=== PATIENT | female | born 1985 | race American Indian/Alaskan Native ===

== ENCOUNTER 2016-12-26 10:37 | Emergency (ER) | payer MEDICAID ==
--- NOTE | 2016-12-26 11:23 | Emergency Department Report ---
Chief Complaint: Nausea/Vomiting/Diarrhea Stated Complaint: N/V X 3 DAYS, 10 WEEKS PREG Time Seen by Provider: 12/26/16 11:21 - HPI History of Present Illness: PT states she is 10 weeks and she has been vomiting for 3 days. She states she can not hold anything down. - ROS Review of Systems: + abd pain + n/v - diarrhea - Exam Vital Signs: Vital Signs 12/26/16 11:19 Temperature 98.2 F Pulse Rate 84 Respiratory 18 Rate Blood Pressure 148/80 O2 Sat by Pulse 98 Oximetry Physical Exam: obese female, no acute distress abd soft and not tender, however, pt reports pelvic pain MSE screening note: Focused history and physical exam performed. Due to findings the following was ordered: labs, us ED Disposition for MSE Condition: Stable
[2016-12-26 12:23] LABS: Bacteria,Urine 1+ /HPF (Negative); Bilirubin,Urine NEG (Negative); Blood,Urine NEG (Negative); Ketones,Urine TR mg/dL (Negative); Leukocyte Esterase,Urine NEG (Negative); Mucus,Urine 2+ /HPF; Nitrite,Urine NEG (Negative); Protein,Urine <15 mg/dL mg/dL (Negative); Urobilinogen,Urine < 2.0 mg/dL (<2.0)
[2016-12-26 12:31] LABS: Basophils % (Auto) 0.6 % (0.0-1.8); Eosinophils % (Auto) 1.6 % (0.0-4.3); Hematocrit 37.1 % (30.3-42.9); Hemoglobin 11.9 gm/dl (10.1-14.3); Mean Corpuscular HGB Conc 32 % (30-34); Mean Corpuscular Hemoglobin 28 pg (28-32); Mean Corpuscular Volume 87 fl (79-97); Platelet Count 264 K/mm3 (140-440); Red Blood Count 4.28 M/mm3 (3.65-5.03); Red Cell Distribution Width 16.2 % (13.2-15.2); White Blood Count 7.7 K/mm3 (4.5-11.0)
[2016-12-26 12:45] LABS: Alanine Aminotransferase 20 units/L (7-56); Albumin 3.5 g/dL (3.9-5); Albumin/Globulin Ratio 0.8 %; Alkaline Phosphatase 58 units/L (35-129); Anion Gap 19 mmol/L; BUN/Creatinine Ratio 13.33; Blood Urea Nitrogen 8 mg/dL (7-17); Calcium 8.9 mg/dL (8.4-10.2); Carbon Dioxide 20 mmol/L (22-30); Chloride 100.4 mmol/L (98-107); Glucose 83 mg/dL (65-100); Potassium 4.1 mmol/L (3.6-5.0); Sodium 135 mmol/L (137-145); Total Protein 7.7 g/dL (6.3-8.2)
--- NOTE | 2016-12-26 14:18 | Ultrasound Report ---
ULTRASOUND OB LESS THAN 14 WEEKS FETUS ULTRASOUND OB TRANSVAGINAL HISTORY: Pelvic pain during . TECHNIQUE: Transabdominal and transvaginal ultrasound with color and spectral doppler interrogation. The uterus measures 13 x 8 x 9 cm. No uterine mass is appreciated. An intrauterine is identified with heart rate measuring 158 beats per minute. Estimated age on ultrasound is weeks, 5 days. Estimated due date of 07/26/17. No subchorionic hemorrhage is appreciated. The right ovary measures 4.1 x 2.7 x 2.9 cm. The left ovary measures 3.2 x 2.1 x 2.4 cm. No adnexal abnormality is appreciated. IMPRESSION: Viable, single intrauterine as described.
[2016-12-26] MEDS ORDERED: ZOFRAN ODT PO ONE (17:12)
--- NOTE | 2016-12-26 19:15 | Emergency Department Report ---
ED General Adult HPI - General Chief complaint: Nausea/Vomiting/Diarrhea Stated complaint: N/V X 3 DAYS, 10 WEEKS PREG Time Seen by Provider: 12/26/16 11:21 Source: patient Mode of arrival: Ambulatory Limitations: No Limitations - History of Present Illness Severity scale (0 -10): 5 - Related Data Previous Rx's Medication Instructions Recorded Last Taken Type Ondansetron [Zofran Odt] 4 mg PO Q8HR PRN #15 tab.rapdis 12/26/16 Unknown Rx Allergies Allergy/AdvReac Type Severity Reaction Status Date / Time No Known Allergies Allergy Verified 12/26/16 16:27 ED Review of Systems ROS: Stated complaint: N/V X 3 DAYS, 10 WEEKS PREG Other details as noted in HPI ED Past Medical Hx - Past Medical History Previous Medical History?: No - Surgical History Past Surgical History?: No - Social History Smoking Status: Never Smoker Substance Use Type: None - Medications Home Medications: Home Medications Medication Instructions Recorded Confirmed Last Taken Type Ondansetron [Zofran Odt] 4 mg PO Q8HR PRN #15 tab.rapdis 12/26/16 Unknown Rx ED Physical Exam - General Limitations: No Limitations ED Course Vital Signs 12/26/16 12/26/16 12/26/16 11:19 15:21 15:24 Temperature 98.2 F 98.1 F Pulse Rate 84 76 Respiratory 18 18 16 Rate Blood Pressure 148/80 Blood Pressure 144/88 [Right] O2 Sat by Pulse 98 100 100 Oximetry 12/26/16 19:26 Temperature Pulse Rate 84 Respiratory 16 Rate Blood Pressure Blood Pressure 103/70 [Right] O2 Sat by Pulse 100 Oximetry ED Medical Decision Making - Lab Data Result diagrams: 12/26/16 12:08 12/26/16 12:08 Critical care attestation.: If time is entered above; I have spent that time in minutes in the direct care of this critically ill patient, excluding procedure time. ED Disposition Disposition: DC-01 TO HOME OR SELFCARE Is pt being admited?: No Does the pt Need Aspirin: No Condition: Stable Instructions: Morning Sickness (ED), (ED), Acute Nausea and Vomiting (ED) Prescriptions: Ondansetron [Zofran Odt] 4 mg PO Q8HR PRN #15 tab.rapdis PRN Reason: Nausea Referrals: MAKENNA MANCIA MD [Staff Physician] - 3-5 Days Forms: Work/School Release Form(ED)
[2016-12-26 19:26] VITALS: BP 103/70
== END 2016-12-26 19:27 | disposition home or self-care (01) ==
LOC: ED 10:37
DX: O21.9 Vomiting of pregnancy, unspecified (principal); O26.891 Other specified pregnancy related conditions, first trimester; R19.7 Diarrhea, unspecified; Z3A.10 10 weeks gestation of pregnancy
CPT/HCPCS: 36415; 76801; 76817; 80053; 81001; 84702; 85025; 86900; 86901; 99284; Q0162

== ENCOUNTER 2017-02-12 10:17 | Emergency (ER) | payer SELFPAY ==
[2017-02-12 10:25] VITALS: BP 125/84
[2017-02-12 12:44] LABS: Basophils % (Auto) 0.5 % (0.0-1.8); Eosinophils % (Auto) 2.5 % (0.0-4.3); Hemoglobin 11.2 gm/dl (10.1-14.3); Mean Corpuscular HGB Conc 32 % (30-34); Mean Corpuscular Hemoglobin 29 pg (28-32); Mean Corpuscular Volume 89 fl (79-97); Platelet Count 209 K/mm3 (140-440); Red Blood Count 3.92 M/mm3 (3.65-5.03); Red Cell Distribution Width 16.1 % (13.2-15.2); White Blood Count 7.2 K/mm3 (4.5-11.0)
[2017-02-12 13:02] LABS: Alanine Aminotransferase 34 units/L (7-56); Albumin 3.2 g/dL (3.9-5); Albumin/Globulin Ratio 0.9 %; Alkaline Phosphatase 45 units/L (35-129); Amylase 60 units/L (27-131); BUN/Creatinine Ratio 8; Blood Urea Nitrogen 5 mg/dL (7-17); Calcium 8.6 mg/dL (8.4-10.2); Carbon Dioxide 22 mmol/L (22-30); Glucose 83 mg/dL (65-100); Lipase 14 units/L (13-60); Total Protein 6.9 g/dL (6.3-8.2)
[2017-02-12 13:03] LABS: Anion Gap 17 mmol/L; Chloride 100.6 mmol/L (98-107); Potassium 3.9 mmol/L (3.6-5.0); Sodium 136 mmol/L (137-145)
--- NOTE | 2017-02-12 13:12 | Emergency Department Report ---
ED Abdominal Pain HPI - General Chief Complaint: Abdominal Pain Stated Complaint: R SIDED STOMACH PAIN 17WKS PREG Time Seen by Provider: 02/12/17 11:08 Source: patient Mode of arrival: Ambulatory Limitations: No Limitations - History of Present Illness Initial Comments: This is a 31-year-old female nontoxic, well nourished in appearance, no acute signs of distress presents to the ED with c/o of right sided lower abdominal pain x1 day. 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 Patient stated she is she currently 17 weeks and follows an [employer] T[employer]ER with normal . Patient denies any trauma to the region. Patient stated symptoms are resolving when laying supine and aggravated during movement. Patient denies any vaginal bleeding, dysuria, polyuria, hematochezia, fever, chills, nausea, vomiting, chest pain, shortness of breath, back pain, flank pain. Patient denies any allergies past medical history. MD Complaint: abdominal pain (RLQ) -: Last night Location: RLQ Radiation: none Migration to: no migration Severity: mild Severity scale (0 -10): 8 Quality: sharp Consistency: intermittent Improves With: rest Worsens With: movement Associated Symptoms: denies other symptoms. denies: nausea, vomiting, diarrhea , fever, chills, constipation, dysuria, hematemesis, hematochezia, melena, hematuria, anorexia, syncope - Related Data LMP Date: 10/17/16 Previous Rx's Medication Instructions Recorded Last Taken Type Ondansetron [Zofran Odt] 4 mg PO Q8HR PRN #15 tab.rapdis 12/26/16 Unknown Rx Acetaminophen [Acetaminophen TAB] 650 mg PO Q8HR PRN #30 tablet 02/12/17 Unknown Rx Allergies Allergy/AdvReac Type Severity Reaction Status Date / Time No Known Allergies Allergy Verified 12/26/16 16:27 ED Review of Systems ROS: Stated complaint: R SIDED STOMACH PAIN 17WKS PREG Other details as noted in HPI Constitutional: denies: chills, fever Eyes: denies: eye pain, eye discharge, vision change ENT: denies: ear pain, throat pain Respiratory: denies: cough, shortness of breath, wheezing Cardiovascular: denies: chest pain, palpitations Endocrine: no symptoms reported Gastrointestinal: abdominal pain. denies: nausea, diarrhea Genitourinary: denies: urgency, dysuria, discharge Musculoskeletal: denies: back pain, joint swelling, arthralgia Skin: denies: rash, lesions Neurological: denies: headache, weakness, paresthesias Psychiatric: denies: anxiety, depression Hematological/Lymphatic: denies: easy bleeding, easy bruising ED Past Medical Hx - Past Medical History Previous Medical History?: No - Surgical History Past Surgical History?: No - Social History Smoking Status: Never Smoker Substance Use Type: None - Medications Home Medications: Home Medications Medication Instructions Recorded Confirmed Last Taken Type Ondansetron [Zofran Odt] 4 mg PO Q8HR PRN #15 tab.rapdis 12/26/16 Unknown Rx Acetaminophen [Acetaminophen TAB] 650 mg PO Q8HR PRN #30 tablet 02/12/17 Unknown Rx ED Physical Exam - General Limitations: No Limitations General appearance: alert, in no apparent distress - Head Head exam: Present: atraumatic, normocephalic, normal inspection - Eye Eye exam: Present: normal appearance, PERRL, EOMI. Absent: scleral icterus, conjunctival injection, nystagmus, periorbital swelling, periorbital tenderness Pupils: Present: normal accommodation - ENT ENT exam: Present: normal exam, normal orophraynx, mucous membranes moist, TM's normal bilaterally, normal external ear exam - Neck Neck exam: Present: normal inspection, full ROM. Absent: tenderness, meningismus, lymphadenopathy, thyromegaly - Respiratory Respiratory exam: Present: normal lung sounds bilaterally. Absent: respiratory distress, wheezes, rales, rhonchi, stridor, chest wall tenderness, accessory muscle use, decreased breath sounds, prolonged expiratory - Cardiovascular Cardiovascular Exam: Present: regular rate, normal rhythm, normal heart sounds. Absent: irregular rhythm, systolic murmur, diastolic murmur, rubs, gallop - GI/Abdominal GI/Abdominal exam: Present: soft, tenderness (slight to RLQ), normal bowel sounds. Absent: distended, guarding, rebound, rigid, diminished bowel sounds - Expanded GI/Abdominal Exam Expanded GI/Abdominal exam: Absent: psoas sign, obturator sign, heel tap sign, Hayes's sign, Rovsing's sign, tenderness at Mcburney's Point - Rectal Rectal exam: Present: deferred - Extremities Exam Extremities exam: Present: normal inspection, full ROM, normal capillary refill. Absent: tenderness, pedal edema, joint swelling, calf tenderness - Back Exam Back exam: Present: normal inspection, full ROM. Absent: tenderness, CVA tenderness (R), CVA tenderness (L), muscle spasm, paraspinal tenderness, vertebral tenderness, rash noted - Neurological Exam Neurological exam: Present: alert, oriented X3, CN II-XII intact, normal gait, reflexes normal - Psychiatric Psychiatric exam: Present: normal affect, normal mood - Skin Skin exam: Present: warm, dry, intact, normal color. Absent: rash ED Course Vital Signs 02/12/17 10:22 Temperature 98.1 F Pulse Rate 104 H Respiratory 16 Rate Blood Pressure 125/84 O2 Sat by Pulse 98 Oximetry - Reevaluation(s) Reevaluation #1: 02/12/17 13:15 Patient is speaking in full sentences with no signs of distress noted. ED Medical Decision Making - Lab Data Result diagrams: 02/12/17 12:24 02/12/17 12:24 - Medical Decision Making This is a 31-year-old female that presents with muscle strain. Patient was examined by me patient is stable. Ultrasound of complete abdomen, transvaginal and fetus has been obtained with normal exam and the radiologist. There is several bladder polyps which patient was notified to follow up with a primary care doctor. Patient received Tylenol in the ED which patient stated symptoms aren't improving and subsiding. CBC, CMP, lipase, amylase, UA, presents as obtained. Patient received 1 L of normal saline ED due to labs of slight dehydration. I will treat patient with Tylenol for pain and I instructed the patient to return to emergency room in 24 hours if symptoms worsen and continue. Patient was also instructed to Follow-up with a primary care doctor in 24 hours or if symptoms worsen and continue return to emergency room as soon as possible. At time time of discharge, the patient does not seem toxic or ill in appearance. No acute signs of distress noted. Patient agrees to discharge treatment plan of care. No further questions noted by the patient. Critical care attestation.: If time is entered above; I have spent that time in minutes in the direct care of this critically ill patient, excluding procedure time. ED Disposition Clinical Impression: Muscle strain Qualifiers: Weeks of gestation: 17 weeks Qualified Code(s): Z3A.17 - 17 weeks gestation of Disposition: DC-01 TO HOME OR SELFCARE Is pt being admited?: No Does the pt Need Aspirin: No Condition: Stable Instructions: Muscle Strain (ED), Acetaminophen (By mouth), (ED) Additional Instructions: Follow-up with a primary care doctor in 24 hours or if symptoms worsen and continue return to emergency room as soon as possible. Prescriptions: Acetaminophen [Acetaminophen TAB] 650 mg PO Q8HR PRN #30 tablet PRN Reason: Pain Referrals: [facility] [Outside] - 3-5 Days [facility] [Outside] - 3-5 Days PRIMARY CARE, [Primary Care Provider] - 24 Hours EVANGELINA KIM MD [Staff Physician] - 24 Hours GERARD DELUNA MD [Staff Physician] - 24 Hours Forms: Work/School Release Form(ED)
[2017-02-12 13:58] LABS: Bilirubin,Urine NEG (Negative); Blood,Urine NEG (Negative); Ketones,Urine 80 mg/dL (Negative); Leukocyte Esterase,Urine NEG (Negative); Mucus,Urine 1+ /HPF; Nitrite,Urine NEG (Negative); Protein,Urine <15 mg/dL mg/dL (Negative)
[2017-02-12] MEDS ORDERED: TYLENOL PO ONE (14:21)
--- NOTE | 2017-02-12 14:46 | Ultrasound Report ---
Abdominal ultrasound. History: Abdominal pain. Findings: The liver, spleen, pancreas, and kidneys are normal. The common bile duct is normal in caliber. There are couple small echogenic foci within the gallbladder lumen which do not exhibit gravity dependence or acoustic shadowing. The Wall of gallbladder is not thickened. Impression: Possible small gallbladder polyps, otherwise unremarkable study.
--- NOTE | 2017-02-12 14:53 | Ultrasound Report ---
Gestation: single Position: cephalic Amniotic Fluid: WNL BJORN = cm Placenta: posterior and fundal Placental Grade: 0 Heart Rate: 145 BPM NEUROANATOMY VISUALIZED: Choroid Plexus Lateral Ventricle ANATOMY VISUALIZED: Stomach Bladder Heart 3 Vessel Cord Abd. Cord Insert The following are not demonstrated due to maternal body habitus or lie: kidneys,diaphragm, 4 chamber heart,cisterna magna, cerebellum, and spine. BPD: 3.5 cm = 16 w 6 d HC: 13.4 cm = 16 w 6 d AC: 11.0 cm = 16 w 6 d FL: 2.3 cm = 17 w 0 d HC/AC Ratio: 1.2 Cephalic Index: 77.8 Estimated Weight: 174 grams LMP: 10/17/16 Clinical age = 16 w 6 d EDC: 07/24/17 US Gest. Age = 16 w 6 d EDC: 07/24/17
[2017-02-12] MEDS ORDERED: NACL 0.9% 1000 ML 1,000 ML IV ONE (15:03)
== END 2017-02-12 16:39 | disposition home or self-care (01) ==
LOC: ED 10:17
DX: O9A.212 Injury, poisoning and certain other consequences of external causes complicating pregnancy, second trimester (principal); S39.011A Strain of muscle, fascia and tendon of abdomen, initial encounter; Z3A.17 17 weeks gestation of pregnancy; X58.XXXA Exposure to other specified factors, initial encounter; Y93.89 Activity, other specified; Y92.89 Other specified places as the place of occurrence of the external cause; Y99.8 Other external cause status
CPT/HCPCS: 36415; 76700; 76805; 80053; 81001; 82150; 83690; 84702; 85025; 86850; 86900; 86901; 96360; 99284; J7030

== ENCOUNTER 2017-07-19 08:19 | Inpatient (IN) | payer MEDICAID ==
[2017-07-19] MEDS ORDERED: CERVIDIL VG ONE (09:48)
--- NOTE | 2017-07-19 09:58 | History and Physical Report ---
History of Present Illness Date of examination: 07/19/17 Date of admission: 07/19/17 08:19 Chief complaint: Induction of Labor History of present illness: 32yo G 5 P 3 0 1 3 at 39 weeks 2 days by LMP here for scheduled induction of labor secondary to morbid obesity. She reports positive FMs and occ UCs. She denies VB or LOF. She is a [employer]SING patient and her care was co-managed with [facility]. 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 She has a h/o asthma and denies any recent asthma attack. Her GBS was negative. Past History Past Medical History: asthma Past Surgical History: no surgical history [employer]ULT [employer]OL TE[employer]ER History: herpes Family/Genetic History: none Social history: single, lives with family - Obstetrical History Expected Date of Delivery: 07/24/17 Actual Gestation: 39 Week(s) 2 Day(s) : 5 Para: 3 Hx # Term Pregnancies: 3 Number of Pregnancies: 0 Spontaneous Abortions: 1 Induced : 0 Number of Living Children: 3 #1 Infant Gender: Female year: 1,999 (12/13/2000) Birthweight: 3.572 kg (7 lbs 14 oz) Method of Delivery: Vaginal Gestational age at delivery: 40 Complications: none #2 Gender: Female year: 2,001 (07/03/2002) Birthweight: 3.572 kg (7 lbs 14 oz) Method of Delivery: Vaginal Gestational age at delivery: 40 Complications: none #3 Infant Gender: Female year: 2,011 (11/04/2012) Birthweight: 3.657 kg (8 lbs 1 oz) Method of Delivery: Vaginal Gestational age at delivery: 40 Complications: none Medications and Allergies Allergies Allergy/AdvReac Type Severity Reaction Status Date / Time No Known Allergies Allergy Verified 07/19/17 09:39 Home Medications Medication Instructions Recorded Confirmed Last Taken Type Ferrous Sulfate [Feosol] 325 mg PO QDAY 07/19/17 07/19/17 07/18/17 21:00 History 1 Multivit-Min/Folic Acid/Alt922 1 each PO DAILY 07/19/17 07/19/17 07/18/17 21:00 History [Alive Women's Gummy Vitamins] 1 Valacyclovir HCl [Valtrex] 1,000 mg PO DAILY 07/19/17 07/19/17 07/18/17 21:00 History 1 Review of Systems All systems: negative - Physical Exam Cardiovascular: Regular rate, Normal S1, Normal S2, No murmurs Lungs: Positive: Clear to auscultation, Normal air movement Abdomen: Positive: normal appearance, soft Genitourinary (Female): Positive: normal external genitalia, normal perenium. Negative: perineal/vulvar lesions Vulva: both: normal Vagina: Positive: normal moisture Uterus: Positive: enlarged, normal contour Anus/Rectum: Positive: normal perianal skin Extremities: Positive: edema (1+) Deep Tendon Reflex Grade: Dull/Diminished +1 - Obstetrical FHR: auscultation normal, category 1 FHR comments: baseline 145, moderate variability, + accels, no decels Uterine Contraction Monitor Mode: External Cervical Dilatation: 2 Cervical Effacement Percentage: 50 station: -3 Uterine Contraction Pattern: Irregular Results All other labs normal. Assessment and Plan - Patient Problems (1) 39 weeks gestation of Current Visit: Yes Status: Acute (2) Encounter for induction of labor Current Visit: Yes Status: Acute Plan to address problem: Admit to L&D with routine labor orders Cervidil for cervical ripening, then Oxytocin for augmentation if indicated Anticipate vaginal delivery (3) Morbid obesity with BMI of 50.0-59.9, adult Current Visit: Yes Status: Acute
[2017-07-19 10:32] LABS: Hemoglobin 10.9 gm/dl (10.1-14.3); Mean Corpuscular HGB Conc 33 % (30-34); Mean Corpuscular Hemoglobin 28 pg (28-32); Mean Corpuscular Volume 84 fl (79-97); Platelet Count 242 K/mm3 (140-440); Red Blood Count 3.94 M/mm3 (3.65-5.03); Red Cell Distribution Width 16.6 % (13.2-15.2)
[2017-07-19] MEDS ORDERED: MINERAL OIL PO PRN (11:30)
[2017-07-19] MEDS ORDERED: XYLOCAINE 2% INFILTRATI NR (11:30)
[2017-07-19] MEDS ORDERED: PITOCin/NS 20 UNIT/1000ML DRIP 20 UNITS/1,000 ML BAG IV SCH (11:30)
[2017-07-19] MEDS ORDERED: ePHEDrine SULFATE IV PRN (11:30)
[2017-07-19] MEDS ORDERED: BRETHINE SUB-Q PRN (11:30)
[2017-07-19] MEDS ORDERED: LACTATED RINGERS 1,000 ML IV SCH (11:30)
[2017-07-19] MEDS ORDERED: BRETHINE IVP PRN (11:30)
[2017-07-19] MEDS: SUBLIMAZE IV PRN ×2 (11:57→18:10)
[2017-07-19] MEDS: STADOL IV PRN ×2 (15:17→16:57)
[2017-07-19] MEDS ORDERED: NARCAN 2 MG/2 ML IV PRN (18:05)
--- NOTE | 2017-07-19 18:19 | Ultrasound Report ---
FINAL REPORT PROCEDURE: US OB LIMITED TECHNIQUE: Real-time limited sonographic examination was performed for evaluation of position for each fetus with image documentation (1 or more fetuses). CPT 77098 HISTORY: presentation COMPARISON: No prior studies are available for comparison. FINDINGS: There is an intrauterine live gestation in cephalic presentation. heart rate is 126 beats per minute. IMPRESSION: 1. Single living intrauterine gestation, in cephalic position.
--- NOTE | 2017-07-19 18:21 | Event Note ---
Date: 07/19/17 S: Pt in right lateral position. C/O painful ctxs. Pain level 10/10. Reports IV pain meds not helping. Requesting epidural. O: Cervidil between thighs; was discarded SVE 5/BBOW Vertex presentation confirmed by STAT bedside ultrasound FHR: baseline 135, moderate variability, + accels, early & variable decels Ctxs: q1-2mins, palpate strong A: 32yo G 5 P 3 0 1 3 @ 39w2d Category II FHR Active Labor Pain poorly controlled P: Continue routine labor orders Epidural for labor pain management Care of patient transferred to Dr. Bradley Anticipate vaginal delivery
[2017-07-19] MEDS: ePHEDrine SULFATE IV PRN ×5 (18:28→18:37)
[2017-07-19] MEDS ORDERED: fentaNYL-BUPIV 2 MCG/ML-0.125% 200 MCG/100 ML BAG EPIDURAL SCH (19:00)
[2017-07-19] MEDS: PITOCin/NS 20 UNIT/1000ML DRIP 20 UNITS/1,000 ML BAG IV SCH ×2 (19:24→20:52)
[2017-07-19] MEDS ORDERED: METHERGINE IM ONE ×2 (19:29→22:00)
--- NOTE | 2017-07-19 19:43 | Procedure Note ---
OB Delivery Note - Delivery Date of Delivery: 07/19/17 Surgeon: CHRISSY DELUNA Estimated blood loss: 100cc - Vaginal Delivery presentation: vertex Delivery position: OA Intrapartum events: none, mult.variable deceleratio Delivery induction: oxytocin Delivery augmentation: rupture of membranes Delivery monitor: external FHT, external uterine Route of delivery: Delivery placenta: spontaneous Delivery cord: 3 umbilical vessels Episiotomy: none Delivery laceration: none Anesthesia: epidural Delivery comments: Infant delivered OA and placed on Mom's chest for [id number] bonding and delayed cord clamping by eldest daughter. - A at 1 minute: 8 at 5 minutes: 9 Infant Gender: Female (3954gms)
[2017-07-19] MEDS ORDERED: LANSINOH TP PRN (19:50)
[2017-07-19] MEDS ORDERED: MILK OF MAGNESIA PO PRN (19:50)
[2017-07-19] MEDS ORDERED: TUCKS PAD TP PRN (19:50)
[2017-07-19] MEDS ORDERED: PHENERGAN PR PRN (19:50)
[2017-07-19] MEDS ORDERED: BENADRYL PO PRN (19:50)
[2017-07-19] MEDS ORDERED: DULCOLAX PR PRN (19:50)
[2017-07-19] MEDS ORDERED: ZOFRAN IV PRN (19:50)
[2017-07-19] MEDS ORDERED: TYLENOL PO PRN (19:50)
[2017-07-19] MEDS ORDERED: PHENERGAN PO PRN (19:50)
[2017-07-19] MEDS ORDERED: SODIUM CHLORIDE FLUSH SYRINGE 10 ML IV SCH (20:00)
[2017-07-19] MEDS: COLACE PO SCH (21:35)
[2017-07-19] MEDS: MOTRIN PO SCH (21:35)
[2017-07-19] MEDS: FEOSOL PO SCH (21:35)
[2017-07-19] MEDS: NORCO 5/325 PO PRN (23:30)
[2017-07-19] MEDS: METHERGINE PO SCH (23:30)
[2017-07-20] MEDS: MOTRIN PO SCH ×3 (05:30→18:05)
[2017-07-20] MEDS ORDERED: BOOSTRIX IM ONE (06:00)
[2017-07-20 07:52] LABS: Hematocrit 32.9 % (30.3-42.9); Hemoglobin 10.4 gm/dl (10.1-14.3)
[2017-07-20] MEDS: NORCO 5/325 PO PRN ×2 (08:26→18:04)
[2017-07-20] MEDS: METHERGINE PO SCH (08:28)
[2017-07-20] MEDS: PRENATAL VITAMIN PO SCH (08:29)
[2017-07-20] MEDS: FEOSOL PO SCH ×2 (08:29→21:11)
[2017-07-20] MEDS: COLACE PO SCH ×2 (08:29→21:11)
--- NOTE | 2017-07-20 08:56 | Progress Note ---
Assessment and Plan - Patient Problems (1) Status post normal vaginal delivery Current Visit: Yes Status: Acute Plan to address problem: PPD 1 - stable Continue routine PP orders Discontinue methergine Discharge to home 07/21/17 F/U at [employer] in 6 weeks for PP exam (2) Morbid obesity with BMI of 50.0-59.9, adult Current Visit: Yes Status: Acute Subjective - Subjective Date of service: 07/20/17 Principal diagnosis: s/p Interval history: 32yo G 5 P 4 0 1 4 s/p normal spontaneous vaginal delivery of a viable term female on 07/19/17. Patient reports: appetite normal, voiding normally, pain well controlled, ambulating normally : doing well, bottle feeding Objective - Vital Signs Latest vital signs: Vital Signs Temp Pulse Resp BP Pulse Ox 07/20/17 04:56 97.8 F 07/20/17 04:30 98.2 F 95 H 20 116/62 07/20/17 00:00 98.0 F 105 H 20 122/78 07/19/17 21:24 98.8 F 105 H 20 131/65 07/19/17 20:31 116 H 20 118/58 07/19/17 20:15 18 111/62 07/19/17 20:03 118 H 18 106/53 07/19/17 19:44 116 H 18 119/71 07/19/17 19:31 122 H 18 113/55 100 07/19/17 17:06 97.8 F 22 07/19/17 16:57 18 07/19/17 15:47 18 07/19/17 15:17 18 07/19/17 12:27 18 07/19/17 11:57 18 07/19/17 09:20 98.0 F 18 Intake and Output 07/19/17 07/20/17 07/20/17 23:59 07:59 15:59 Intake Total 366.667 720 Balance 366.667 720 Intake: IV 366.667 PITOCin/NS 20 UNIT/1000ML 366.667 DRIP 20 units In 1,000 ml @ 250 mls/hr IV DIRECT JC Rx#:[id number] Oral 720 Other: Total, Intake Amount 240 # Voids Void 1 Estimated Blood Loss 100 - Exam Cardiovascular: Present: Regular rate, Normal S1, Normal S2, No murmurs Lungs: Present: Clear to auscultation, Normal air movement Abdomen: Present: normal appearance Vulva: both: normal Uterus: Present: normal, firm, fundal height at umbilicus Extremities: Present: edema (BLE, 1+) - Labs Labs: Abnormal lab results 07/19/17 Range/Units 09:00 RDW 16.6 H (13.2-15.2) %
--- NOTE | 2017-07-20 09:05 | Discharge Summary ---
Providers - Providers Date of Admission: 07/19/17 08:19 Date of discharge: 07/21/17 Attending physician: KARTHIKEYAN JACKSON MD Primary care physician: KARTHIKEYAN JACKSON MD Hospitalization Reason for admission: induction of labor, IUP at term Episiotomy: none Laceration: none Other procedures: none complications: none Discharge diagnosis: IUP at term delivered baby: female Condition at discharge: Stable Disposition: DC-01 TO HOME OR SELFCARE - Discharge Diagnoses (1) Status post normal vaginal delivery Status: Acute (2) Morbid obesity with BMI of 50.0-59.9, adult Status: Acute Plan - Provider Discharge Summary Activity: no sex for 6 weeks, no heavy lifting 4 weeks, no strenuous exercise Diet: routine Instructions: routine Additional instructions: [] Smoking cessation referral if applicable(refer to patient education folder for contact #) [] Refer to [facility] Booklet Call your doctor immediately for: * Fever > 100.5 * Heavy vaginal bleeding ( >1 pad per hour) * Severe persistent headache * Shortness of breath * Reddened, hot, painful area to leg or breast * Drainage or odor from incision. * Keep incision clean and dry at all times and follow doctor's instructions regarding bathing/showering - Follow up plan Follow up: KARTHIKEYAN JACKSON MD [Primary Care Provider] - 6 Weeks (Call [facility] THERAPEUTIC MASSAGE TECHNICIAN to schedule appointment in 6 weeks for PP exam)
[2017-07-20] MEDS ORDERED: M-M-R II VACCINE SUB-Q ONE (19:50)
[2017-07-21] MEDS: MOTRIN PO SCH ×3 (00:20→08:00)
[2017-07-21] MEDS: NORCO 5/325 PO PRN (02:57)
[2017-07-21 09:41] VITALS: BP 110/61
[2017-07-21] MEDS: FEOSOL PO SCH (12:02)
[2017-07-21] MEDS: COLACE PO SCH (12:02)
[2017-07-21] MEDS: PRENATAL VITAMIN PO SCH (12:04)
== END 2017-07-21 14:56 | disposition home or self-care (01) | DRG 774 ==
LOC: LD 08:19 → OB 21:22
PROVIDERS: ADMIT Obstetrics & Gynecology; ATTEND Obstetrics & Gynecology
PROC: 10E0XZZ Delivery of Products of Conception, External Approach (ICD-10-PCS; principal; 2017-07-19)
PROC: 3E0R3BZ Introduction of Anesthetic Agent into Spinal Canal, Percutaneous Approach (ICD-10-PCS; 2017-07-19)
PROC: 00HU33Z Insertion of Infusion Device into Spinal Canal, Percutaneous Approach (ICD-10-PCS; 2017-07-19)
PROC: 3E033VJ Introduction of Other Hormone into Peripheral Vein, Percutaneous Approach (ICD-10-PCS; 2017-07-19)
DX: O76 Abnormality in fetal heart rate and rhythm complicating labor and delivery (principal); O98.52 Other viral diseases complicating childbirth; Z37.0 Single live birth; O99.214 Obesity complicating childbirth; E66.01 Morbid (severe) obesity due to excess calories; Z68.43 Body mass index [BMI] 50.0-59.9, adult; O99.52 Diseases of the respiratory system complicating childbirth; J45.909 Unspecified asthma, uncomplicated; Z3A.39 39 weeks gestation of pregnancy; E55.9 Vitamin D deficiency, unspecified; D50.9 Iron deficiency anemia, unspecified; O75.89 Other specified complications of labor and delivery; B00.9 Herpesviral infection, unspecified; O99.02 Anemia complicating childbirth
CPT/HCPCS: 36415; 59200; 76815; 85014; 85018; 85027; 86592; 86850; 86900; 86901; 99211; G0463; J0595; J2210; J2590; J3010; J7120

== ENCOUNTER 2019-06-26 00:36 | Emergency (ER) | payer SELFPAY ==
[2019-06-26 01:43] LABS: Basophils % (Auto) 0.6 % (0.0-1.8); Eosinophils # (Auto) 0.1 K/mm3 (0.0-0.4); Eosinophils % (Auto) 1.8 % (0.0-4.3); Hematocrit 36.1 % (30.3-42.9); Hemoglobin 11.3 gm/dl (10.1-14.3); Lymphocytes # (Auto) 2.3 K/mm3 (1.2-5.4); Lymphocytes % (Auto) 35.4 % (13.4-35.0); Mean Corpuscular HGB Conc 31 % (30-34); Mean Corpuscular Volume 84 fl (79-97); Monocytes # (Auto) 0.4 K/mm3 (0.0-0.8); Monocytes % (Auto) 6.7 % (0.0-7.3); Platelet Count 262 K/mm3 (140-440); Red Cell Distribution Width 16.1 % (13.2-15.2)
[2019-06-26 02:05] LABS: Alanine Aminotransferase 10 units/L (7-56); BUN/Creatinine Ratio 12; Blood Urea Nitrogen 11 mg/dL (7-17); Calcium 9.2 mg/dL (8.4-10.2); Hemolysis Index 3
[2019-06-26] MEDS ORDERED: ONDANSETRON 4 MG/2 ML INJ IV ONE (03:47)
[2019-06-26] MEDS ORDERED: DICYCLOMINE 20 MG/2 ML INJ IM ONE (03:47)
[2019-06-26] MEDS ORDERED: SODIUM CHLORIDE 0.9% 1000 ML 1,000 ML IV ONE (03:47)
[2019-06-26] MEDS ORDERED: KETOROLAC 30 MG/1 ML INJ IV ONE (03:47)
--- NOTE | 2019-06-26 03:59 | Cat Scan Report ---
CT ABDOMEN AND PELVIS WITHOUT CONTRAST INDICATION / CLINICAL INFORMATION: Pt complains of bi-lateral epigastric abd pain. History of gallstone(s) Hx of a Gastric Sleeve, but n o other surgeries.. TECHNIQUE: Axial CT images were obtained through the abdomen and pelvis without IV contrast. All CT scans at [facility] location are performed using CT dose reduction for ALARA by means of automated exposure control. COMPARISON: None available. FINDINGS: LOWER CHEST: No significant abnormality. LIVER: No significant abnormality. GALLBLADDER: Moderately distended but no stones or inflammation. BILE DUCTS: No significant abnormality. PANCREAS: No significant abnormality. SPLEEN: No significant abnormality. ADRENALS: No significant abnormality. RIGHT KIDNEY and URETER: Tiny nonobstructing intrarenal stone. No ureteral stone or hydronephrosis. LEFT KIDNEY and URETER: Tiny nonobstructing intrarenal stone. No ureteral stone or hydronephrosis. STOMACH and SMALL BOWEL: Gastric stapling procedure. No dilated small bowel. COLON: No significant abnormality. APPENDIX: No significant abnormality. PERITONEUM: No free fluid. No free air. No fluid collection. LYMPH NODES: No significant adenopathy. AORTA and ARTERIES: No significant abnormality. IVC and VEINS: No significant abnormality. URINARY BLADDER: No significant abnormality. REPRODUCTIVE ORGANS: No significant abnormality. ADDITIONAL FINDINGS: None. SKELETAL SYSTEM: No significant abnormality. IMPRESSION: 1. No inflammatory process or bowel obstruction. 2. Bilateral nephrolithiasis but no ureteral stone or hydronephrosis. Signer Name: Joel Pinedo MD Signed: 06/26/2019 3:54 AM Workstation Name: [email or web address]
[2019-06-26] MEDS ORDERED: FAMOTIDINE 20 MG/2 ML INJ IV ONE (04:25)
[2019-06-26] MEDS ORDERED: MORPHINE 4 MG/1 ML INJ IV ONE (04:36)
--- NOTE | 2019-06-26 04:41 | Emergency Department Report ---
ED Abdominal Pain HPI - General Chief Complaint: Abdominal Pain Stated Complaint: GALLSTONE PAIN Time Seen by Provider: 06/26/19 03:36 Source: patient Mode of arrival: Ambulatory Limitations: No Limitations - History of Present Illness Initial Comments: Patient is a 34-year-old F [place]i female who states she has a history of gallstones who is presenting with abdominal pain nausea vomiting. Patient states pain is been present for the last several hours. She states she has been compliant with low-fat diet and ate some mashed potatoes that was made with potatoes and water. Patient is complaining of some epigastric pain. States pain is 9 out of 10 in severity. She denies diarrhea fevers chills cough cold or congestion at this time. Patient states she is having difficulty with obtaining a surgical consultation for her biliary colic because she has a history of gastric sleeve and her bariatric surgeon is on leave at this time. - Related Data Home Medications Medication Instructions Recorded Confirmed Last Taken Ferrous Sulfate [Feosol] 325 mg PO QDAY 07/19/17 07/19/17 07/18/17 21:00 1 Multivit-Min/Folic Acid/[id number] 1 each PO DAILY 07/19/17 07/19/17 07/18/17 21:00 [Alive Women's Gummy Vitamins] 1 Valacyclovir HCl [Valtrex] 1,000 mg PO DAILY 07/19/17 07/19/17 07/18/17 21:00 1 Previous Rx's Medication Instructions Recorded Last Taken Type Famotidine [Pepcid] 40 mg PO QHS #10 tablet 06/26/19 Unknown Rx Ondansetron [Zofran Odt] 4 mg PO Q8HR #10 tab.rapdis 06/26/19 Unknown Rx traMADoL [Ultram] 50 mg PO Q6HR PRN #12 tablet 06/26/19 Unknown Rx Allergies Allergy/AdvReac Type Severity Reaction Status Date / Time No Known Allergies Allergy Verified 07/19/17 09:39 ED Review of Systems ROS: Stated complaint: GALLSTONE PAIN Other details as noted in HPI Comment: All other systems reviewed and negative ED Past Medical Hx - Past Medical History Hx Hypertension: No Hx Congestive Heart Failure: No Hx Diabetes: No Hx Deep Vein Thrombosis: No Hx Renal Disease: No Hx Sickle Cell Disease: No Hx Seizures: No Hx Asthma: No Hx COPD: No Hx HIV: No Additional medical history: gallstones - Surgical History Additional Surgical History: gastric sleeve 12/18/18 - Social History Smoking Status: Never Smoker Substance Use Type: None - Medications Home Medications: Home Medications Medication Instructions Recorded Confirmed Last Taken Type Ferrous Sulfate [Feosol] 325 mg PO QDAY 07/19/17 07/19/17 07/18/17 21:00 History 1 Multivit-Min/Folic Acid/[id number] 1 each PO DAILY 07/19/17 07/19/17 07/18/17 21:00 History [Alive Women's Gummy Vitamins] 1 Valacyclovir HCl [Valtrex] 1,000 mg PO DAILY 07/19/17 07/19/17 07/18/17 21:00 History 1 Famotidine [Pepcid] 40 mg PO QHS #10 tablet 06/26/19 Unknown Rx Ondansetron [Zofran Odt] 4 mg PO Q8HR #10 tab.rapdis 06/26/19 Unknown Rx traMADoL [Ultram] 50 mg PO Q6HR PRN #12 tablet 06/26/19 Unknown Rx ED Physical Exam - General Limitations: No Limitations General appearance: alert, in no apparent distress - Head Head exam: Present: atraumatic, normocephalic - Eye Eye exam: Present: normal appearance - ENT ENT exam: Present: mucous membranes moist - Neck Neck exam: Present: normal inspection - Respiratory Respiratory exam: Present: normal lung sounds bilaterally. Absent: respiratory distress, wheezes, rales, rhonchi - Cardiovascular Cardiovascular Exam: Present: regular rate, normal rhythm, normal heart sounds. Absent: systolic murmur, diastolic murmur, rubs, gallop - GI/Abdominal GI/Abdominal exam: Present: soft, tenderness (epigastric tendrness), normal bowel sounds. Absent: distended, guarding, rebound, rigid - Extremities Exam Extremities exam: Present: normal inspection - Back Exam Back exam: Present: normal inspection - Neurological Exam Neurological exam: Present: alert, oriented X3 - Psychiatric Psychiatric exam: Present: normal affect, normal mood - Skin Skin exam: Present: warm, dry, intact, normal color. Absent: rash ED Course Vital Signs 06/26/19 00:41 Temperature 98 F Pulse Rate 79 Respiratory 20 Rate Blood Pressure 140/95 O2 Sat by Pulse 95 Oximetry ED Medical Decision Making - Lab Data Result diagrams: 06/26/19 01:05 06/26/19 01:05 Lab Results 06/26/19 06/26/19 06/26/19 Range/Units 01:05 01:05 01:05 WBC 6.5 (4.5-11.0) K/mm3 RBC 4.30 (3.65-5.03) M/mm3 Hgb 11.3 (10.1-14.3) gm/dl Hct 36.1 (30.3-42.9) % MCV 84 (79-97) fl MCH 26 L (28-32) pg MCHC 31 (30-34) % RDW 16.1 H (13.2-15.2) % Plt Count 262 (140-440) K/mm3 Lymph % (Auto) 35.4 H (13.4-35.0) % Brule % (Auto) 6.7 (0.0-7.3) % Eos % (Auto) 1.8 (0.0-4.3) % Baso % (Auto) 0.6 (0.0-1.8) % Lymph # 2.3 (1.2-5.4) K/mm3 Brule # 0.4 (0.0-0.8) K/mm3 Eos # 0.1 (0.0-0.4) K/mm3 Baso # 0.0 (0.0-0.1) K/mm3 Seg Neutrophils % 55.5 (40.0-70.0) % Seg Neutrophils # 3.6 (1.8-7.7) K/mm3 Sodium 140 (137-145) mmol/L Potassium 3.8 (3.6-5.0) mmol/L Chloride 103.4 (98-107) mmol/L Carbon Dioxide 23 (22-30) mmol/L Anion Gap 17 mmol/L BUN 11 (7-17) mg/dL Creatinine 0.9 (0.7-1.2) mg/dL Estimated GFR > 60 ml/min BUN/Creatinine Ratio 12 % Glucose 114 H (65-100) mg/dL Calcium 9.2 (8.4-10.2) mg/dL Total Bilirubin 0.30 (0.1-1.2) mg/dL AST 12 (5-40) units/L ALT 10 (7-56) units/L Alkaline Phosphatase 74 (35-129) units/L Total Protein 7.8 (6.3-8.2) g/dL Albumin 4.0 (3.9-5) g/dL Albumin/Globulin Ratio 1.1 % Lipase 23 (13-60) units/L HCG, Qual Negative (Negative) - Radiology Data [facility] [address] [place] [id number] Cat Scan Report Signed Patient: LAURA HARVEY MR#: [id number] : 1985 Acct:[id number] Age/Sex: 34 / F ADM Date: 06/26/19 Loc: ED Attending Dr: Ordering Physician: NEHEMIAH LAWS III, MD Date of Service: 06/26/19 Procedure(s): CT abdomen pelvis wo con Accession Number(s): [id number] cc: NEHEMIAH LAWS III, MD CT ABDOMEN AND PELVIS WITHOUT CONTRAST INDICATION / CLINICAL INFORMATION: Pt complains of bi-lateral epigastric abd pain. History of gallstone(s) Hx of a Gastric Sleeve, but no other surgeries.. TECHNIQUE: Axial CT images were obtained through the abdomen and pelvis without IV contrast. All CT scans at this location are performed using CT dose reduction for ALARA by means of automated exposure control. COMPARISON: None available. FINDINGS: LOWER CHEST: No significant abnormality. LIVER: No significant abnormality. GALLBLADDER: Moderately distended but no stones or inflammation. BILE DUCTS: No significant abnormality. PANCREAS: No significant abnormality. SPLEEN: No significant abnormality. ADRENALS: No significant abnormality. RIGHT KIDNEY and URETER: Tiny nonobstructing intrarenal stone. No ureteral stone or hydronephrosis. LEFT KIDNEY and URETER: Tiny nonobstructing intrarenal stone. No ureteral stone or hydronephrosis. STOMACH and SMALL BOWEL: Gastric stapling procedure. No dilated small bowel. COLON: No significant abnormality. APPENDIX: No significant abnormality. PERITONEUM: No free fluid. No free air. No fluid collection. LYMPH NODES: No significant adenopathy. AORTA and ARTERIES: No significant abnormality. IVC and VEINS: No significant abnormality. URINARY BLADDER: No significant abnormality. REPRODUCTIVE ORGANS: No significant abnormality. ADDITIONAL FINDINGS: None. SKELETAL SYSTEM: No significant abnormality. IMPRESSION: 1. No inflammatory process or bowel obstruction. 2. Bilateral nephrolithiasis but no ureteral stone or hydronephrosis. Signer Name: Joel Pinedo MD Signed: 06/26/2019 3:54 AM Workstation Name: [id number] [employer] [place] - Medical Decision Making Patient states she was admitted for biliary colic 1 month ago at outside hospital. Our CT shows no evidence of gallstones although gallstones would be better seen on ultrasound. Regardless the patient has no evidence of cholecystitis on CT and her laboratory studies within normal limits. Patient was given medication for symptomatic relief and will be discharged home Critical care attestation.: If time is entered above; I have spent that time in minutes in the direct care of this critically ill patient, excluding procedure time. ED Disposition Clinical Impression: Abdominal pain Qualifiers: Abdominal location: epigastric Qualified Code(s): R10.13 - Epigastric pain Disposition: - TO HOME OR SELFCARE Is pt being admited?: No Does the pt Need Aspirin: No Condition: Stable Instructions: Abdominal Pain (ED) Referrals: PRIMARY CAREMD [Primary Care Provider] - 3-5 Days ZACHARIAH MACK MD [Staff Physician] - 3-5 Days Time of Disposition: 04:43
[2019-06-26 06:24] VITALS: BP 140/86
== END 2019-06-26 06:22 | disposition home or self-care (01) ==
LOC: ED 00:36
DX: R10.13 Epigastric pain (principal); R11.2 Nausea with vomiting, unspecified
CPT/HCPCS: 36415; 74176; 80053; 83690; 84703; 85025; 96361; 96372; 96374; 96375; 99284; J0500; J1885; J2270; J2405; J7030

== ENCOUNTER 2019-08-14 07:57 | Emergency (ER) | payer MEDICAID ==
[2019-08-14 08:12] VITALS: BP 146/86
[2019-08-14] MEDS ORDERED: KETOROLAC 60 MG/2 ML INJ IM ONE (08:30)
--- NOTE | 2019-08-14 08:31 | Emergency Department Report ---
ED Recheck HPI - General Chief Complaint: Abdominal Pain Stated Complaint: GALLSTONES/TOP STOMACH PAIN Time Seen by Provider: 08/14/19 08:18 Source: patient Mode of arrival: Ambulatory Limitations: No Limitations - History of Present Illness Initial Comments: Ms. Hunt is a 34-year-old -Turkish female who comes to the ER today with her gallbladder pain. She was diagnosed with gallstones several months ago after having a gastric sleeve placed. She has had a full work-up. Had nonobstructing gallstones. She saw Dr. Negrete and was scheduled for her cholecystectomy but then COVID caused delay in her surgery. She comes in with colicky pain from her gallbladder. She has no nausea and vomiting. There is no jaundice. She is ambulatory. No fever or chills. No tachycardia or hypotension. She is asking for pain medicines to get her through until she can see Dr. Negrete. She states that she has left numerous messages for his office but is not getting return call. I have informed her that in the last week or so [facility] have started doing surgeries again. I have instructed her to call Dr. Negrete's office and asked to speak with a nurse who can help her to communicate to Dr. Negrete that she has again ended up in the ER with her pain. Her tentative surgery date is sometime in August. Complaint: other Symptoms Since Prior Visit: no new symptoms Associated Symptoms: none, abdominal pain - Related Data Home Medications Medication Instructions Recorded Confirmed Last Taken Ferrous Sulfate [Feosol] 325 mg PO QDAY 07/19/17 07/19/17 07/18/17 21:00 1 Multivit-Min/Folic Acid/[id number] 1 each PO DAILY 07/19/17 07/19/17 07/18/17 21:00 [Alive Women's Gummy Vitamins] 1 Valacyclovir HCl [Valtrex] 1,000 mg PO DAILY 07/19/17 07/19/17 07/18/17 21:00 1 Previous Rx's Medication Instructions Recorded Last Taken Type Famotidine [Pepcid] 40 mg PO QHS #10 tablet 06/26/19 Unknown Rx Ibuprofen [Motrin] 800 mg PO Q8HR PRN #15 tablet 08/14/19 Unknown Rx Ondansetron [Zofran Odt] 4 mg PO Q8HR #10 tab.rapdis 08/14/19 Unknown Rx traMADoL [Ultram] 50 mg PO Q6HR PRN #12 tablet 08/14/19 Unknown Rx Allergies Allergy/AdvReac Type Severity Reaction Status Date / Time No Known Allergies Allergy Verified 08/14/19 08:02 ED Review of Systems ROS: Stated complaint: GALLSTONES/TOP STOMACH PAIN Other details as noted in HPI Comment: All other systems reviewed and negative ED Past Medical Hx - Past Medical History Hx Hypertension: No Hx Congestive Heart Failure: No Hx Diabetes: No Hx Deep Vein Thrombosis: No Hx Renal Disease: No Hx Sickle Cell Disease: No Hx Seizures: No Hx Asthma: No Hx COPD: No Hx HIV: No Additional medical history: gallstones - Surgical History Additional Surgical History: gastric sleeve 12/18/18 - Social History Smoking Status: Never Smoker Substance Use Type: None - Medications Home Medications: Home Medications Medication Instructions Recorded Confirmed Last Taken Type Ferrous Sulfate [Feosol] 325 mg PO QDAY 07/19/17 07/19/17 07/18/17 21:00 History 1 Multivit-Min/Folic Acid/[id number] 1 each PO DAILY 07/19/17 07/19/17 07/18/17 21:00 History [Alive Women's Gummy Vitamins] 1 Valacyclovir HCl [Valtrex] 1,000 mg PO DAILY 07/19/17 07/19/17 07/18/17 21:00 History 1 Famotidine [Pepcid] 40 mg PO QHS #10 tablet 06/26/19 Unknown Rx Ibuprofen [Motrin] 800 mg PO Q8HR PRN #15 tablet 08/14/19 Unknown Rx Ondansetron [Zofran Odt] 4 mg PO Q8HR #10 tab.rapdis 08/14/19 Unknown Rx traMADoL [Ultram] 50 mg PO Q6HR PRN #12 tablet 08/14/19 Unknown Rx ED Physical Exam - General Limitations: No Limitations General appearance: alert, in no apparent distress - Head Head exam: Present: atraumatic, normocephalic - Eye Eye exam: Present: normal appearance - ENT ENT exam: Present: mucous membranes moist - Neck Neck exam: Present: normal inspection - Respiratory Respiratory exam: Present: normal lung sounds bilaterally. Absent: respiratory distress - Cardiovascular Cardiovascular Exam: Present: regular rate, normal rhythm. Absent: systolic murmur, diastolic murmur, rubs, gallop - GI/Abdominal GI/Abdominal exam: Present: soft, normal bowel sounds, other (Obese). Absent: distended, tenderness, guarding, rebound, diminished bowel sounds, hyperactive bowel sounds, hypoactive bowel sounds, organomegaly, mass, bruit, pulsatile mass, hernia - Extremities Exam Extremities exam: Present: normal inspection - Back Exam Back exam: Present: normal inspection - Neurological Exam Neurological exam: Present: alert, oriented X3 - Psychiatric Psychiatric exam: Present: normal affect, normal mood - Skin Skin exam: Present: warm, dry, intact, normal color. Absent: rash ED Course Vital Signs 08/14/19 08:02 Temperature 98.6 F Pulse Rate 72 Respiratory 18 Rate Blood Pressure 146/86 O2 Sat by Pulse 100 Oximetry ED Recheck MDM - Core Measures Measure Exclusions: not indicated - Medical Decision Making EMR was reviewed. Last CAT scan reviewed. Patient has a outpatient doctor. She has surgery scheduled for August. There is no evidence of obstructive stone no jaundice -no fever or chills. No nausea vomiting diarrhea. Vital signs normal. Patient has been instructed on diet that would help her pain. She is also been given Ultram on discharge. Patient being discharged home with surgical follow-up. Vital Signs 08/14/19 08:02 Temperature 98.6 F Pulse Rate 72 Respiratory 18 Rate Blood Pressure 146/86 O2 Sat by Pulse 100 Oximetry Critical care attestation.: If time is entered above; I have spent that time in minutes in the direct care of this critically ill patient, excluding procedure time. ED Disposition Clinical Impression: Morbid obesity with BMI of 50.0-59.9, adult, Gall stone Disposition: - TO HOME OR SELFCARE Is pt being admited?: No Does the pt Need Aspirin: No Condition: Stable Instructions: Cholecystitis (ED), Biliary Colic (ED) Prescriptions: Ibuprofen [Motrin] 800 mg PO Q8HR PRN #15 tablet PRN Reason: Pain, Moderate (4-6) traMADoL [Ultram] 50 mg PO Q6HR PRN #12 tablet PRN Reason: Pain Ondansetron [Zofran Odt] 4 mg PO Q8HR #10 tab.rapdis Referrals: PRIMARY CARE, [Primary Care Provider] - 3-5 Days Time of Disposition: 08:29
== END 2019-08-14 09:09 | disposition home or self-care (01) ==
LOC: ED 07:57
DX: K80.80 Other cholelithiasis without obstruction (principal); E66.01 Morbid (severe) obesity due to excess calories; Z68.43 Body mass index [BMI] 50.0-59.9, adult; Z79.899 Other long term (current) drug therapy
CPT/HCPCS: 96372; 99282; J1885

== ENCOUNTER 2021-03-02 13:07 | Emergency (ER) | payer MEDICAID ==
[2021-03-02 13:15] VITALS: BP 151/64
--- NOTE | 2021-03-02 13:30 | Emergency Department Report ---
ED General Adult HPI - General Chief complaint: Medical Clearance Stated complaint: DOC SENT FOR ULTRA SOUND Time Seen by Provider: 03/02/21 13:19 Source: patient Mode of arrival: Ambulatory Limitations: No Limitations - History of Present Illness Initial comments: There is a pleasant 35-year-old female who presents the emergency department approximately 17 weeks with a chief complaint of an abnormal ultrasound. She went to her FUR TRAPPER at [facility] today for routine follow-up with no complaints whatsoever and they try to find her heart tones and were unable to do so so they referred her to the emergency department for an ultrasound. She denies any pain, denies any vaginal bleeding. States otherwise she is feeling well. Denies associated fever, chills, night sweats, headache, dizziness, blurry vision, nausea, vomit, diarrhea, chest pain, shortness of breath, weakness or any other associated symptoms. - Related Data Home Medications Medication Instructions Recorded Confirmed Last Taken Ferrous Sulfate [Feosol] 325 mg PO QDAY 07/19/17 07/19/17 07/18/17 21:00 1 Multivit-Min/Folic Acid/[id number] 1 each PO DAILY 07/19/17 07/19/17 07/18/17 21:00 [Alive Women's Gummy Vitamins] 1 Valacyclovir HCl [Valtrex] 1,000 mg PO DAILY 07/19/17 07/19/17 07/18/17 21:00 1 Previous Rx's Medication Instructions Recorded Last Taken Type Famotidine [Pepcid] 40 mg PO QHS #10 tablet 06/26/19 Unknown Rx Ibuprofen [Motrin] 800 mg PO Q8HR PRN #15 tablet 08/14/19 Unknown Rx Ondansetron [Zofran Odt] 4 mg PO Q8HR #10 tab.rapdis 08/14/19 Unknown Rx traMADoL [Ultram] 50 mg PO Q6HR PRN #12 tablet 08/14/19 Unknown Rx Allergies Allergy/AdvReac Type Severity Reaction Status Date / Time No Known Allergies Allergy Verified 08/14/19 08:02 ED Review of Systems ROS: Stated complaint: DOC SENT FOR ULTRA SOUND Other details as noted in HPI Comment: All other systems reviewed and negative Constitutional: denies: chills, fever Eyes: denies: eye pain, eye discharge, vision change ENT: denies: ear pain, throat pain Respiratory: denies: cough, shortness of breath, wheezing Cardiovascular: denies: chest pain, palpitations Endocrine: no symptoms reported Gastrointestinal: denies: abdominal pain, nausea, diarrhea Genitourinary: denies: urgency, dysuria, discharge Musculoskeletal: denies: back pain, joint swelling, arthralgia Skin: denies: rash, lesions Neurological: denies: headache, weakness, paresthesias Psychiatric: denies: anxiety, depression Hematological/Lymphatic: denies: easy bleeding, easy bruising ED Past Medical Hx - Past Medical History Previous Medical History?: Yes Hx Hypertension: No Hx Congestive Heart Failure: No Hx Diabetes: No Hx Deep Vein Thrombosis: No Hx Renal Disease: No Hx Sickle Cell Disease: No Hx Seizures: No Hx Asthma: No Hx COPD: No Hx HIV: No Additional medical history: gallstones - Surgical History Past Surgical History?: Yes Additional Surgical History: gastric sleeve 12/18/18 - Social History Smoking Status: Never Smoker Substance Use Type: None - Medications Home Medications: Home Medications Medication Instructions Recorded Confirmed Last Taken Type Ferrous Sulfate [Feosol] 325 mg PO QDAY 07/19/17 07/19/17 07/18/17 21:00 History 1 Multivit-Min/Folic Acid/[id number] 1 each PO DAILY 07/19/17 07/19/17 07/18/17 21:00 History [Alive Women's Gummy Vitamins] 1 Valacyclovir HCl [Valtrex] 1,000 mg PO DAILY 07/19/17 07/19/17 07/18/17 21:00 History 1 Famotidine [Pepcid] 40 mg PO QHS #10 tablet 06/26/19 Unknown Rx Ibuprofen [Motrin] 800 mg PO Q8HR PRN #15 tablet 08/14/19 Unknown Rx Ondansetron [Zofran Odt] 4 mg PO Q8HR #10 tab.rapdis 08/14/19 Unknown Rx traMADoL [Ultram] 50 mg PO Q6HR PRN #12 tablet 08/14/19 Unknown Rx ED Physical Exam - General Limitations: No Limitations General appearance: alert, in no apparent distress - Head Head exam: Present: atraumatic, normocephalic - Eye Eye exam: Present: normal appearance, PERRL, EOMI Pupils: Present: normal accommodation - ENT ENT exam: Present: normal exam, normal orophraynx, mucous membranes moist - Neck Neck exam: Present: normal inspection, full ROM. Absent: tenderness, meningismus - Respiratory Respiratory exam: Present: normal lung sounds bilaterally. Absent: respiratory distress, wheezes, rales, rhonchi, stridor - Cardiovascular Cardiovascular Exam: Present: regular rate, normal rhythm. Absent: systolic murmur, diastolic murmur, rubs, gallop - GI/Abdominal GI/Abdominal exam: Present: soft, normal bowel sounds. Absent: distended, tenderness, guarding, rebound, rigid - Extremities Exam Extremities exam: Present: normal inspection, full ROM, normal capillary refill. Absent: tenderness, calf tenderness - Back Exam Back exam: Present: normal inspection, full ROM. Absent: tenderness, CVA tender ness (R), CVA tenderness (L) - Neurological Exam Neurological exam: Present: alert, oriented X3, normal gait - Psychiatric Psychiatric exam: Present: normal affect, normal mood - Skin Skin exam: Present: warm, dry, intact, normal color. Absent: rash ED Course Vital Signs 03/02/21 13:13 Temperature 98.0 F Pulse Rate 93 H Respiratory 16 Rate Blood Pressure 151/64 [Right] O2 Sat by Pulse 100 Oximetry - Consultations Consultation #1: 03/02/21 16:13 Spoke to FUR TRAPPER Dr. Erazo at [facility] who reviewed work-up and ultrasound findings and stated that the patient could be discharged and follow- up tomorrow at their office for induction. ED Medical Decision Making - Lab Data Result diagrams: 03/02/21 13:30 03/02/21 13:30 Lab Results 03/02/21 03/02/21 03/02/21 Range/Units 13:30 13:30 13:30 WBC 4.3 L (4.5-11.0) K/mm3 RBC 4.09 (3.65-5.03) M/mm3 Hgb 12.3 (10.1-14.3) gm/dl Hct 37.2 (30.3-42.9) % MCV 91 (79-97) fl MCH 30 (28-32) pg MCHC 33 (30-34) % RDW 14.9 (13.2-15.2) % Plt Count 221 (140-440) K/mm3 Lymph % (Auto) 34.5 (13.4-35.0) % Starke % (Auto) 7.5 H (0.0-7.3) % Eos % (Auto) 2.2 (0.0-4.3) % Baso % (Auto) 0.6 (0.0-1.8) % Lymph # (Auto) 1.5 (1.2-5.4) K/mm3 Starke # (Auto) 0.3 (0.0-0.8) K/mm3 Eos # (Auto) 0.1 (0.0-0.4) K/mm3 Baso # (Auto) 0.0 (0.0-0.1) K/mm3 Seg Neutrophils % 55.2 (40.0-70.0) % Seg Neutrophils # 2.4 (1.8-7.7) K/mm3 Sodium 138 (137-145) mmol/L Potassium 4.5 (3.6-5.0) mmol/L Chloride 104.0 (98-107) mmol/L Carbon Dioxide 19 L (22-30) mmol/L Anion Gap 20 mmol/L BUN 7 (7-17) mg/dL Creatinine 0.6 (0.6-1.2) mg/dL Estimated GFR > 60 ml/min BUN/Creatinine Ratio 12 % Glucose 88 (65-100) mg/dL Calcium 9.2 (8.4-10.2) mg/dL Total Bilirubin 0.30 (0.1-1.2) mg/dL AST 16 (5-40) units/L ALT 13 (7-56) units/L Alkaline Phosphatase 58 (35-129) units/L Total Protein 7.4 (6.3-8.2) g/dL Albumin 3.9 (3.9-5) g/dL Albumin/Globulin Ratio 1.1 % HCG, Qual Positive (Negative) HCG, Quant (0-4) mIU/mL Blood Type 03/02/21 03/02/21 Range/Units 13:30 13:30 WBC (4.5-11.0) K/mm3 RBC (3.65-5.03) M/mm3 Hgb (10.1-14.3) gm/dl Hct (30.3-42.9) % MCV (79-97) fl MCH (28-32) pg MCHC (30-34) % RDW (13.2-15.2) % Plt Count (140-440) K/mm3 Lymph % (Auto) (13.4-35.0) % Starke % (Auto) (0.0-7.3) % Eos % (Auto) (0.0-4.3) % Baso % (Auto) (0.0-1.8) % Lymph # (Auto) (1.2-5.4) K/mm3 Starke # (Auto) (0.0-0.8) K/mm3 Eos # (Auto) (0.0-0.4) K/mm3 Baso # (Auto) (0.0-0.1) K/mm3 Seg Neutrophils % (40.0-70.0) % Seg Neutrophils # (1.8-7.7) K/mm3 Sodium (137-145) mmol/L Potassium (3.6-5.0) mmol/L Chloride (98-107) mmol/L Carbon Dioxide (22-30) mmol/L Anion Gap mmol/L BUN (7-17) mg/dL Creatinine (0.6-1.2) mg/dL Estimated GFR ml/min BUN/Creatinine Ratio % Glucose (65-100) mg/dL Calcium (8.4-10.2) mg/dL Total Bilirubin (0.1-1.2) mg/dL AST (5-40) units/L ALT (7-56) units/L Alkaline Phosphatase (35-129) units/L Total Protein (6.3-8.2) g/dL Albumin (3.9-5) g/dL Albumin/Globulin Ratio % HCG, Qual (Negative) HCG, Quant 1793 H (0-4) mIU/mL Blood Type A POSITIVE - Radiology Data Radiology results: report reviewed, image reviewed Ordering Physician: SUNDEEP MIRELES Date of Service: 03/02/21 Procedure(s): US OB >= 14 weeks Fetus Accession Number(s): [id number] cc: SUNDEEP MIRELES EARLY OBSTETRICAL ULTRASOUND INDICATION: abnormal ultrasound at OB office COMPARISON: None pertinent available TECHNIQUE: Transabdominal FINDINGS: Early intrauterine is seen with estimated gestational age of 14 weeks 5 days, less than the 17 weeks 0 days estimated by clinical dating. Cardiac activity was not not visualized. Sac is mildly deformed in appearance appearing contracted in its lower portion and the fetus is in the lower uterine segment. Amniotic fluid volume appears appropriate. IMPRESSION: demise Signer Name: Ulisses Kendall MD Signed: 03/02/2021 3:20 PM Workstation Name: [id number] Transcribed By: NEELAM Dictated By: Ulisses Kendall MD Electronically Authenticated By: Ulisses Kendall MD Signed Date/Time: 03/02/21 1520 - Medical Decision Making Patient is hemodynamically stable and in no acute distress. Unfortunately the ultrasound confirmed a demise. Blood type is a positive no RhoGam is needed. She is hemodynamically stable with a normal H&H. I spoke with the her FUR TRAPPER and they will see her in the office tomorrow for induction. Patient was agreeable this plan. All of her questions were answered. She is instructed to return to the ER with any change or worsening symptoms such as severe abdominal pain, heavy vaginal bleeding greater than 1 pad an hour, weakness, syncope or any other changing worsening symptoms. - Differential Diagnosis Ectopic , Missed , demise Critical care attestation.: If time is entered above; I have spent that time in minutes in the direct care of this critically ill patient, excluding procedure time. ED Disposition Clinical Impression: Missed with demise before 20 completed weeks of gestation Disposition: HOME / SELF CARE / HOMELESS Is pt being admited?: No Condition: Stable Instructions: Managing Loss Referrals: PRIMARY CAREMD [Primary Care Provider] - 3-5 Days CHRISTA ERAZO MD [Staff Physician] - 24 Hours Forms: Work/School Release Form(ED) Time of Disposition: 16:16
[2021-03-02 13:50] LABS: Basophils % (Auto) 0.6 % (0.0-1.8); Eosinophils # (Auto) 0.1 K/mm3 (0.0-0.4); Eosinophils % (Auto) 2.2 % (0.0-4.3); Hematocrit 37.2 % (30.3-42.9); Hemoglobin 12.3 gm/dl (10.1-14.3); Lymphocytes # (Auto) 1.5 K/mm3 (1.2-5.4); Lymphocytes % (Auto) 34.5 % (13.4-35.0); Mean Corpuscular HGB Conc 33 % (30-34); Mean Corpuscular Volume 91 fl (79-97); Monocytes # (Auto) 0.3 K/mm3 (0.0-0.8); Monocytes % (Auto) 7.5 % (0.0-7.3); Platelet Count 221 K/mm3 (140-440); Red Blood Count 4.09 M/mm3 (3.65-5.03); Red Cell Distribution Width 14.9 % (13.2-15.2)
[2021-03-02 14:16] LABS: Alanine Aminotransferase 13 units/L (7-56); Albumin 3.9 g/dL (3.9-5); Blood Urea Nitrogen 7 mg/dL (7-17); Calcium 9.2 mg/dL (8.4-10.2); Hemolysis Index 7
[2021-03-02 14:27] LABS: BUN/Creatinine Ratio 12
--- NOTE | 2021-03-02 15:26 | Ultrasound Report ---
EARLY OBSTETRICAL ULTRASOUND INDICATION: abnormal ultrasound at OB office COMPARISON: None pertinent available TECHNIQUE: Transabdominal FINDINGS: Early intrauterine is seen with estimated gestational age of 14 weeks 5 days, les s than the 17 weeks 0 days estimated by clinical dating. Cardiac activity was not not visualized. Sac is mildly deformed in appearance appearing contracted in its lower portion and the fetus is in the l ower uterine segment. Amniotic fluid volume appears appropriate. IMPRESSION: demise Signer Name: Ulisses Kendall MD Signed: 03/02/2021 3:20 PM Workstation Name: [id number]
== END 2021-03-02 16:27 | disposition home or self-care (01) ==
LOC: ED 13:07
DX: O02.1 Missed abortion (principal)
CPT/HCPCS: 36415; 76805; 80053; 84702; 84703; 85025; 86900; 86901; 99284

== ENCOUNTER 2021-12-21 16:06 | Outpatient (CLI) | payer MEDICAID ==
[2021-12-21] MEDS ORDERED: ACETAMINOPHEN 500 MG TAB PO ONE (17:16)
[2021-12-21] MEDS ORDERED: ACETAMINOPHEN 500 MG TAB ONE (20:12)
[2021-12-21 20:52] VITALS: BP 114/55
[2021-12-21 21:47] LABS: Hemoglobin 11.3 gm/dl (10.1-14.3); Mean Corpuscular HGB Conc 32 % (30-34); Mean Corpuscular Volume 94 fl (79-97); Platelet Count 182 K/mm3 (140-440); Red Blood Count 3.73 M/mm3 (3.65-5.03)
[2021-12-21 21:55] LABS: Color,Urine Yellow (Yellow)
[2021-12-21 21:59] LABS: Bacteria,Urine 1+ /HPF (Negative); Mucus,Urine 3+ /HPF
[2021-12-21 22:01] LABS: Ictotest,Urine Negative (Negative)
[2021-12-21 22:23] LABS: Alanine Aminotransferase 15 units/L (7-56); Albumin 3.4 g/dL (3.9-5); Blood Urea Nitrogen 5 mg/dL (7-17); Calcium 8.3 mg/dL (8.4-10.2)
[2021-12-21 22:26] LABS: BUN/Creatinine Ratio 8
--- NOTE | 2021-12-21 22:37 | Ultrasound Report ---
ULTRASOUND OBSTETRIC INDICATION / CLINICAL INFORMATION: BJORN, EFW. - Clinical Gestational Age (GA) in weeks, days: 26 weeks, 3 days TECHNIQUE: Transabdominal. COMPARISON: None FINDINGS: Single intrauterine . Biparietal Diameter = 6.41 cm = 25 weeks, 6 days Head Circumference = 23.5 cm = 25 weeks, 4 days Abdominal Circumference = 20.8 cm = 25 weeks, 2 days Femur Length = 4.5 cm = 25 weeks, 0 days Average Ultrasound Age (AUA) = 25 weeks, 3 days Heart Rate: 153 beats per minute. Estimated Weight in grams (if calculated): 788 Estimated Weight Growth Percentile (if calculated): 7% Position: cephalic. Cervix: closed. Length in cm (if measured): Placenta: anterior and free of the os. Amniotic Fluid Volume: normal Amniotic Fluid Index (BJORN) in cm (if calculated): 15.1. Maternal Adnexa: No significant abnormality. IMPRESSION: 1. Single, living intrauterine with estimated sonographic age of 25 weeks, 3 days. Estimate d weight is in the 7th percentile. 2. No significant sonographic abnormality. Signer Name: Gabriel Khoury MD Signed: 12/21/2021 10:32 PM Workstation Name: [id number]
== END 2021-12-21 22:28 | disposition home or self-care (01) ==
LOC: TRG 16:06 → APU 16:08 → TRG 22:28
PROVIDERS: ATTEND Obstetrics & Gynecology Gynecology
DX: O09.892 Supervision of other high risk pregnancies, second trimester (principal); O26.892 Other specified pregnancy related conditions, second trimester; R50.9 Fever, unspecified; M79.18 Myalgia, other site; R06.02 Shortness of breath; Z20.822 Contact with and (suspected) exposure to COVID-19; Z3A.26 26 weeks gestation of pregnancy
CPT/HCPCS: 36415; 76816; 80053; 81001; 85027; 87502; U0003